=== PATIENT | male | born 1990 | race Caucasian/White ===

== ENCOUNTER 2017-02-25 12:49 | Emergency (ER) | payer SELFPAY ==
[~2017-02-25] VITALS: Ht 175.2 cm; Wt 70.3 kg
[~2017-02-25 12:49] MED LIST: IBU800 M1 PO; MOTRIN800 MG PO; NKHM
== END 2017-02-25 15:03 | disposition home or self-care (01) ==
LOC: ED 12:49
DX: S60.221A Contusion of right hand, initial encounter (principal); F17.200 Nicotine dependence, unspecified, uncomplicated; W23.0XXA Caught, crushed, jammed, or pinched between moving objects, initial encounter; Y93.89 Activity, other specified; Y92.89 Other specified places as the place of occurrence of the external cause; Y99.9 Unspecified external cause status

== ENCOUNTER 2024-07-02 10:37 | Emergency (ER) | payer SELFPAY ==
[~2024-07-02] VITALS: Ht 175.2 cm; Wt 78.6 kg
[~2024-07-02 10:37] MED LIST changes: +AMOXICILLIN500 M2 PO; +Motrin,Rufen800 MG PO
[2024-07-02] MEDS ORDERED: VISTARIL25 MG PO (11:16)
== END 2024-07-02 11:41 | disposition home or self-care (01) ==
LOC: ED 10:37
DX: F41.9 Anxiety disorder, unspecified (principal); F32.A Depression, unspecified